=== PATIENT | male | born 1995 | race Two or more races ===

== ENCOUNTER 2019-02-07 17:42 | Emergency (ER) | payer MEDICAID, OTHER ==
[~2019-02-07] VITALS: Ht 175.3 cm; Wt 99.8 kg
[2019-02-07 18:00] VITALS: BP 129/85
--- NOTE | 2019-02-07 18:00 | NUR ---
ED Nurse Note: pt walked in to ED due to feeling dizziness, vision changes, and ringing on ears for last 10 days. per pt, seen by multiple ERs for same sx. ambulatory with steady gait. denies CP or SOB. AAO x4. respirations even and non-labored noted. skin warm to touch. no open wound noted. will wait for the further order.
--- NOTE | 2019-02-07 18:52 | Diagnostic Imaging Report ---
EXAM: CT Head Without Intravenous Contrast CLINICAL HISTORY: DIZZY TECHNIQUE: Axial computed tomography images of the head brain without intravenous contrast. CTDI is 70 mGy and DLP is 1471 mGy-cm. One or more of the following dose reduction techniques were used: automated exposure control, adjustment of the mA and or kV according to patient size, use of iterative reconstruction technique. COMPARISON: No relevant prior studies available. FINDINGS: Brain: Unremarkable. No hemorrhage. No significant white matter disease. No edema. Ventricles: Unremarkable. No ventriculomegaly. Bones joints: Unremarkable. No acute fracture. Soft tissues: Unremarkable. Sinuses: Unremarkable as visualized. No acute sinusitis. Mastoid air cells: Unremarkable as visualized. No mastoid effusion. IMPRESSION: Normal for age unenhanced CT head.
--- NOTE | 2019-02-07 18:58 | Emergency Room Report ---
History of Present Illness General Chief Complaint: Dizziness Source: Patient Present Illness HPI 23-year-old male with no significant past medical history here complaining of dizziness and tinnitus in the right ear for the past 2 days. Patient reports that he was driving 8 days ago as he suddenly felt numbness in the left arm as well as headache and dizziness feeling diaphoresis. Patient went to the emergency room at [facility] was evaluated for cardiac and presumed mental reasons for his symptoms and everything was ruled out patient was diagnosed with anxiety and given Xanax. However patient did not take Xanax went to the same emergency room 1 day later and was reevaluated for the same reason. Tox screen was negative. Patient denies any smoking or tobacco use as well as drug use. Patient uses a lot of medical terminology and reporting that he goes on global and finds different causes of his symptoms. Patient was also prescribed meclizine however took 1 dose and said that he did not help him. Patient then went to [facility] ER few days ago and was reevaluated and told to follow-up with a primary care provider patient has an appointment with primary care on February 18 however he reports that he cannot wait that long. Patient reports that he had repeated ear infections as a kid denies any ear pain however complains of tinnitus. Psychosomatic symptoms is well as anxiety noted on patient. Patient rating his pain 3 out of 10 in the right side of head and feeling fullness in the ear. Denies chest pain, shortness of breath, palpitation, and other associated symptoms. Allergies: Coded Allergies: PENICILLINS (Verified Allergy, Unknown, 02/07/19) Patient History Past Medical History: see triage record Past Surgical History: unable to obtain Pertinent Family History: none Immunizations: UTD Reviewed Nursing Documentation: PMH: Agreed; PSxH: Agreed Review of Systems All Other Systems: negative except mentioned in HPI Physical Exam Vital Signs Date Time Temp Pulse Resp B/P (MAP) Pulse Ox O2 Delivery O2 Flow Rate FiO2 02/07/19 17:50 97.7 93 19 129/85 (100) 96 Room Air Sp02 EP Interpretation: reviewed, normal General Appearance: no apparent distress, alert, GCS 15, non-toxic Head: normocephalic, atraumatic Eyes: bilateral eye normal inspection, bilateral eye PERRL ENT: hearing grossly normal, normal pharynx, no angioedema, normal voice Neck: full range of motion, supple/symm/no masses Respiratory: chest non-tender, lungs clear, normal breath sounds, no rhonchi, no wheezing, speaking full sentences Cardiovascular #1: regular rate, rhythm, no edema, no murmur Gastrointestinal: normal bowel sounds, non tender, soft, non-distended, no guarding, no rebound Genitourinary: normal inspection, no CVA tenderness Musculoskeletal: back normal, gait/station normal, normal range of motion, non- tender, no calf tenderness Neurologic: alert, oriented x3, responsive, motor strength/tone normal, sensory intact, speech normal Psychiatric: judgement/insight normal, memory normal, mood/affect normal, no suicidal/homicidal ideation Skin: no rash Lymphatic: no adenopathy Medical Decision Making PA Attestation Diagnosis and treatment plans were reviewed and discussed with my supervising physician Dr. Fuentes Diagnostic Impression: Primary Impression: Dizziness of unknown cause Additional Impression: Migraine headache ER Course 23-year-old male with no significant past medical history here complaining of dizziness and tinnitus in the right ear for the past 2 days. Patient reports that he was driving 8 days ago as he suddenly felt numbness in the left arm as well as headache and dizziness feeling diaphoresis. Patient went to the emergency room at [facility] was evaluated for cardiac and presumed mental reasons for his symptoms and everything was ruled out patient was diagnosed with anxiety and given Xanax. However patient did not take Xanax went to the same emergency room 1 day later and was reevaluated for the same reason. Tox screen was negative. Patient denies any smoking or tobacco use as well as drug use. Patient uses a lot of medical terminology and reporting that he goes on global and finds different causes of his symptoms. Patient was also prescribed meclizine however took 1 dose and said that he did not help him. Patient then went to [facility] ER few days ago and was reevaluated and told to follow-up with a primary care provider patient has an appointment with primary care on February 18 however he reports that he cannot wait that long. Patient reports that he had repeated ear infections as a kid denies any ear pain however complains of tinnitus. Psychosomatic symptoms is well as anxiety noted on patient. Patient rating his pain 3 out of 10 in the right side of head and feeling fullness in the ear. Denies chest pain, shortness of breath, palpitation, and other associated symptoms. Ddx considered but are not limited to: Dizziness due to alcohol intoxication, dizziness unspecified, dizziness due to head trauma, dizziness secondary to cardiac reasons Vital signs: are WNL, pt. is afebrile H&PE are most consistent with: Dizziness secondary to anxiety ORDERS: Head CT no contrast, urine tox screen, sumatriptan ER intervention: None DISCHARGE: At this time pt. is stable for d/c to home. Will provide printed patient care instructions, and any necessary prescriptions. Care plan and follow up instructions have been discussed with the patient prior to discharge. I advised the patient to follow-up with a primary care provider for referral to neurologist as well as ENT and also advised patient to stop going on [employer] and coming up with different diagnoses. CT/MRI/US Diagnostic Results CT/MRI/US Diagnostic Results : Imaging Test Ordered: Head CT no contrast Impression FINDINGS: Brain: Unremarkable. No hemorrhage. No significant white matter disease. No edema. Ventricles: Unremarkable. No ventriculomegaly. Bones/joints: Unremarkable. No acute fracture. Soft tissues: Unremarkable. Sinuses: Unremarkable as visualized. No acute sinusitis. Mastoid air cells: Unremarkable as visualized. No mastoid effusion. IMPRESSION: Normal for age unenhanced CT head. Last Vital Signs Date Time Temp Pulse Resp B/P (MAP) Pulse Ox O2 Delivery O2 Flow Rate FiO2 02/07/19 18:00 97.7 93 19 129/85 96 Room Air Disposition: HOME, SELF-CARE Condition: Stable Scripts Sumatriptan Succinate* (IMITREX*) 50 Mg Tablet 50 MG ORAL DAILY PRN MIGRAINE for 3 Days, #3 TAB Prov: Shon Santos 02/07/19 Referrals: NON PHYSICIAN (PCP) Patient Instructions: Dizziness, Migraine Headache, [id number], Vertigo Additional Instructions: Take medication as directed follow-up with your primary care provider for referral to ear nose throat doctor you may be having migraine/cluster headache. Shon Santos Feb 07, 2019 18:58
[2019-02-07] MEDS ORDERED: IMITREX50 MG ORAL (19:00)
--- NOTE | 2019-02-07 19:04 | NUR ---
HAND-OFF: Report given to MAYA Hope.
[2019-02-07 19:10] VITALS: BP 129/85
--- NOTE | 2019-02-07 19:10 | NUR ---
ER DISCHARGE NOTE: Patient is cleared to be discharged per ERMD, pt is aox4, on room air, with stable vital signs. pt was given dc and prescription instructions, pt was able to verbalize understanding, pt id band removed. pt is able to ambulate with steady gait. pt took all belongings.
== END 2019-02-07 19:10 | disposition home or self-care (01) ==
LOC: EMR 18:20
DX: R42 Dizziness and giddiness (principal); G43.909 Migraine, unspecified, not intractable, without status migrainosus; H93.11 Tinnitus, right ear; Z88.0 Allergy status to penicillin; F41.9 Anxiety disorder, unspecified
CPT/HCPCS: 70450; 80307; Z7502; 99284